=== PATIENT | female | born 1965 | race Caucasian/White ===

== ENCOUNTER → 2023-10-25 12:56 | Outpatient (REF) | payer BC, SELFPAY | LOC: HWWDC 12:56 | PROVIDERS: ATTENDING PHYSICIAN Nurse Practitioner; FAMILY PHYSICIAN Internal Medicine | DX: Z12.31 Encounter for screening mammogram for malignant neoplasm of breast (principal) | CPT/HCPCS: 77063; 77067 ==

== ENCOUNTER → 2024-07-25 16:43 | Outpatient (REF) | payer BC, SELFPAY | LOC: RAD 16:43 | PROVIDERS: ATTENDING PHYSICIAN Hospitalist | DX: J69.0 Pneumonitis due to inhalation of food and vomit (principal) | CPT/HCPCS: 71046 ==

== ENCOUNTER → 2024-10-31 11:28 | Outpatient (REF) | payer BC, SELFPAY | LOC: HWRAD 11:28 | PROVIDERS: ATTENDING PHYSICIAN Hospitalist | DX: R05.3 Chronic cough (principal) | CPT/HCPCS: 71046 ==

== ENCOUNTER → 2024-11-23 09:58 | Outpatient (REF) | payer BC, SELFPAY | LOC: HWRAD 09:58 | PROVIDERS: ATTENDING PHYSICIAN Hospitalist | DX: R05.8 Other specified cough (principal) | CPT/HCPCS: 71250 ==

== ENCOUNTER → 2024-11-23 10:15 | Outpatient (REF) | payer BC, SELFPAY | LOC: HWRAD 10:15 | PROVIDERS: ATTENDING PHYSICIAN Obstetrics & Gynecology; FAMILY PHYSICIAN Hospitalist | DX: Z12.31 Encounter for screening mammogram for malignant neoplasm of breast (principal) | CPT/HCPCS: 77063; 77067 ==